=== PATIENT | male | born 1970 | race Two or more races ===

== ENCOUNTER 2020-10-28 06:58 | Day surgery (SDC) | payer OTHER | END 2020-10-28 16:15 | disposition home or self-care (01) | LOC: CIR.AMB 06:58 | PROVIDERS: ATTEND Specialist | DX: K40.90 Unilateral inguinal hernia, without obstruction or gangrene, not specified as recurrent (principal); D36.15 Benign neoplasm of peripheral nerves and autonomic nervous system of abdomen; Z20.822 Contact with and (suspected) exposure to COVID-19 ==

== ENCOUNTER 2021-04-14 04:30 | Day surgery (SDC) | payer OTHER | END 2021-04-14 11:30 | disposition home or self-care (01) | LOC: CIR.AMB 04:30 | PROVIDERS: ATTEND Specialist | DX: K80.10 Calculus of gallbladder with chronic cholecystitis without obstruction (principal); Z20.822 Contact with and (suspected) exposure to COVID-19 ==